=== PATIENT | male | born 1965 | race Caucasian/White ===

== ENCOUNTER 2016-08-27 13:21 | Inpatient (IN) | payer BC, OTHER ==
[2016-08-27 14:28] LABS: % IMMATURE GRANULYOCYTES 0.3 % (0.0-1.1); ABSOLUTE IMMATURE GRANULOCYTES 0.02 10^3/uL (0.00-0.10); ADD DIFF? NO; ADD MORPH? NO; ADD SCAN? NO; ATYPICAL LYMPHOCYTE FLAG 0 (0-99); FRAGMENT RBC FLAG 0 (0-99); HEMATOCRIT 45.8 % (40.0-51.0); HEMOGLOBIN 15.3 g/dL (13.7-17.5); LEFT SHIFT FLG 0 (0-99); LIPEMIA HEMOLYSIS FLAG 80 (0-99); MEAN CELL HEMOGLOBIN 27.9 pg (27.9-34.1); MEAN CELL HEMOGLOBIN CONCENTR. 33.4 g/dL (32.4-36.7); MEAN CELL VOLUME 83.4 fL (81.5-99.8); MEAN PLATELET VOLUME 9.7 fL (8.7-11.7); PLATELET CLUMPS FLAG 0 (0-99); PLATELET COUNT 188 10^3/uL (150-400); RED BLOOD CELL COUNT 5.49 10^6/uL (4.40-6.38); RED CELL DISTRIBUTION WIDTH 12.9 % (11.5-15.2)
--- NOTE | 2016-08-27 14:32 | EDPHY ---
H & P Stated Complaint: depression/si voluntary Source: Patient Exam Limitations: No limitations - Personal History Current Tetanus/Diphtheria Vaccine: Yes - Medical/Surgical History Hx Asthma: No Hx Chronic Respiratory Disease: No Hx Diabetes: No Hx Cardiac Disease: No Hx Renal Disease: No Hx Cirrhosis: No Hx Alcoholism: No Hx HIV/AIDS: No Hx Splenectomy or Spleen Trauma: No Other PMH: depression - Family History Significant Family History: No pertinent family hx - Social History Smoking Status: Never smoked Alcohol Use: Rarely Drug Use: None Time Seen by Provider: 08/27/16 14:00 HPI/ROS: HPI: 51-year-old male presents to emergency department voluntarily with chief concern feeling suicidal. Reports a plan of buying a gun and killing himself imminently. His father killed himself with a gun several months ago. Patient has a history of generalized anxiety and depression. He heard a voice today tell him to get a gun and kill himself. He denies alcohol or illicit drug use. Denies auditory hallucinations. Denies homicidal ideation. Denies previous suicide attempt. No fever, chills, myalgias, URI symptoms, shortness of breath , chest pain, abdominal pain, nausea, vomiting, diarrhea. ROS:10 point review of systems is negative other than as stated in HPI (Za Mcleod) - Social History Additional Social History: [place] (Za Mcleod) - Physical Exam Exam: Vital signs stable, reviewed by me General: Awake, alert, calm, cooperative. No acute distress. Head: Normalocephalic. Atraumatic. EENT: PERRLA. EOMI. No pallor or injection. Anicteric. No nystagmus. No injection. TMs intact bilaterally with normal landmarks. No rhinnorhea, nasal passages clear. Oropharynx without redness, exudates, or lesions. Tonsils 2+ bilaterally, no exudates. Neck: Supple, nontender. No lymphadenopathy. Full range of motion. No meningismus. Respiratory: Breathing unlabored. Breath sounds equal bilaterally and clear to auscultation. No adventitious sounds. CV: Chest nontender, atraumatic. Heart rate regular. No murmur, distal pulses 2+ bilaterally. Brisk cap refill all extremities. GI: Abdomen soft, nontender. Bowel sounds normoactive and positive x4 quadrants. Neuro: Alert. Oriented x 3. Speech clear. Nonfocal cranial nerves throughout. Sensation intact all extremities. Skin: Skin warm, dry, intact. No rashes, abrasions, or lacerations. Skin turgor normal. Extremities: Full range of motion in all 4 extremities. Strength 5+ all extremities. Mental status: Sad, controlled expressions, cooperative, logical (Za Mcleod ) Constitutional: Initial Vital Signs Temperature (C) 36.8 C 08/27/16 13:29 Heart Rate 78 08/27/16 13:29 Respiratory Rate 18 08/27/16 13:29 Blood Pressure 122/76 H 08/27/16 13:29 O2 Sat (%) 94 08/27/16 13:29 O2 Delivery Mode Room Air Allergies/Adverse Reactions: No Known Allergies Allergy (Unverified 08/27/16 13:27) Home Medications: Medication Instructions Recorded Levothyroxine [Synthroid 125 mcg 125 mcg PO MOTUWETHFRSA 08/27/16 (*)] Levothyroxine [Synthroid 125 mcg 187.5 mcg PO BELLO 08/27/16 (*)] Propranolol HCl [Inderal 10mg (*)] 10 mg PO DAILY PRN 08/27/16 Sertraline HCl [Zoloft 100mg (*)] 150 mg PO DAILY 08/27/16 Zolpidem Tartrate [Ambien 5MG (*)] 1.25 - 5 mg PO HS PRN 08/27/16 busPIRone [Buspar (*)] 5 - 15 mg PO DAILY PRN 08/27/16 Medical Decision Making ED Course/Re-evaluation: 51-year-old gentleman presents to emergency department voluntarily with chief concern suicidal ideation. He is placed on an M1 hold pending mental health evaluation. He is medically clear. Has no previous suicide attempts however his father killed himself with a gun several months ago. Patient is stable and cooperative. 1844: Patient has a bed on [address]. Awaiting transfer. Care of this patient has been transferred to my colleague Dr. Lauren Cordon. (Za Mcelod) 2009: I filled out an EMTALA. The patient has a disposition place. 2134: Patient is stable. (Lauren Cordon) Differential Diagnosis: Differential includes but is not limited to functional and major depression, situational depression, medication side-effect, anxiety, schizophrenia, bipolar , drug or alcohol related, acute psychosis, metabolic derangement, infection ( Za Mcleod) - Data Points Laboratory Results: Laboratory Results 08/27/16 14:00 08/27/16 14:00 08/27/16 08/27/16 08/27/16 18:11 14:00 14:00 WBC RBC Hgb Hct MCV MCH MCHC RDW Plt Count MPV Neut % (Auto) Lymph % (Auto) Cross % (Auto) Eos % (Auto) Baso % (Auto) Nucleat RBC Rel Count Absolute Neuts (auto) Absolute Lymphs (auto) Absolute Monos (auto) Absolute Eos (auto) Absolute Basos (auto) Absolute Nucleated RBC Immature Gran % Immature Gran # Sodium 135 mEq/L mEq/L (134-144) Potassium 4.4 mEq/L mEq/L (3.5-5.2) Chloride 101 mEq/L mEq/L (97-110) Carbon Dioxide 24 mEq/l mEq/l (22-31) Anion Gap 10 mEq/L mEq/L (8-16) BUN 19 mg/dL mg/dL (7-23) Creatinine 0.9 mg/dL mg/dL (0.7-1.3) Estimated GFR > 60 Glucose 110 mg/dL H mg/dL (70-100) Calcium 9.6 mg/dL mg/dL (8.5-10.4) TSH 2.070 uIU/mL uIU/mL (0.465-4.680) Urine Opiates Screen NEGATIVE (NEGATIVE) Urine Barbiturates NEGATIVE (NEGATIVE) Ur Phencyclidine Scrn NEGATIVE (NEGATIVE) Ur Amphetamine Screen NEGATIVE (NEGATIVE) U Benzodiazepines Scrn NEGATIVE (NEGATIVE) Urine Cocaine Screen NEGATIVE (NEGATIVE) U Marijuana (THC) Screen NEGATIVE (NEGATIVE) Ethyl Alcohol < 10 mg/dL mg/dL (0-10) 08/27/16 14:00 WBC 6.37 10^3/uL 10^3/uL (3.80-9.50) RBC 5.49 10^6/uL 10^6/uL (4.40-6.38) Hgb 15.3 g/dL g/dL (13.7-17.5) Hct 45.8 % % (40.0-51.0) MCV 83.4 fL fL (81.5-99.8) MCH 27.9 pg pg (27.9-34.1) MCHC 33.4 g/dL g/dL (32.4-36.7) RDW 12.9 % % (11.5-15.2) Plt Count 188 10^3/uL 10^3/uL (150-400) MPV 9.7 fL fL (8.7-11.7) Neut % (Auto) 75.6 % H % (39.3-74.2) Lymph % (Auto) 17.7 % % (15.0-45.0) Cross % (Auto) 5.8 % % (4.5-13.0) Eos % (Auto) 0.3 % L % (0.6-7.6) Baso % (Auto) 0.3 % % (0.3-1.7) Nucleat RBC Rel Count 0.0 % % (0.0-0.2) Absolute Neuts (auto) 4.81 10^3/uL 10^3/uL (1.70-6.50) Absolute Lymphs (auto) 1.13 10^3/uL 10^3/uL (1.00-3.00) Absolute Monos (auto) 0.37 10^3/uL 10^3/uL (0.30-0.80) Absolute Eos (auto) 0.02 10^3/uL L 10^3/uL (0.03-0.40) Absolute Basos (auto) 0.02 10^3/uL 10^3/uL (0.02-0.10) Absolute Nucleated RBC 0.00 10^3/uL 10^3/uL (0-0.01) Immature Gran % 0.3 % % (0.0-1.1) Immature Gran # 0.02 10^3/uL 10^3/uL (0.00-0.10) Sodium Potassium Chloride Carbon Dioxide Anion Gap BUN Creatinine Estimated GFR Glucose Calcium TSH Urine Opiates Screen Urine Barbiturates Ur Phencyclidine Scrn Ur Amphetamine Screen U Benzodiazepines Scrn Urine Cocaine Screen U Marijuana (THC) Screen Ethyl Alcohol Departure - Departure Disposition: [facility] IP Clinical Impression: Suicidal ideation Condition: Good Referrals: PEDRO REDMOND [Other] - As per Instructions
[2016-08-27 14:41] LABS: ANION GAP 10 mEq/L (8-16); CALCIUM 9.6 mg/dL (8.5-10.4); CARBON DIOXIDE 24 mEq/l (22-31); CHLORIDE 101 mEq/L (97-110); CREATININE 0.9 mg/dL (0.7-1.3); ETHANOL SERUM < 10 mg/dL (0-10); GLOMERULAR FILTRATION RATE > 60; GLUCOSE 110 mg/dL (70-100); POTASSIUM 4.4 mEq/L (3.5-5.2); SODIUM 135 mEq/L (134-144)
[2016-08-27] MEDS ORDERED: PROPRANOLOL HCL 10 MG TAB PO PRN (22:50)
[2016-08-27] MEDS ORDERED: ACETAMINOPHEN 325 MG TAB PO PRN (22:50)
[2016-08-27] MEDS ORDERED: MAG HYDROX/AL HYDROX/SIMETH 30 ML UDCUP PO PRN (22:51)
[2016-08-27] MEDS: ZOLPIDEM TARTRATE 5 MG TAB PO PRN (23:15)
[2016-08-28] MEDS: LORazepam 0.5 MG TAB PO PRN ×3 (00:36→20:53)
[2016-08-28] MEDS: SERTRALINE HCL 50 MG TAB PO SCH (09:21)
[2016-08-28] MEDS: LEVOTHYROXINE 125 MCG TAB PO SCH (09:22)
[2016-08-28] MEDS: ZOLPIDEM TARTRATE 5 MG TAB PO PRN (20:53)
[2016-08-28] MEDS: MAGNESIUM HYDROXIDE 30 ML UDCUP PO PRN (20:53)
--- NOTE | 2016-08-28 22:57 | BCON ---
[f rep st] BEHAVIORAL HEALTH CONSULTATION INTERNAL MEDICINE CONSULTATION DATE OF CONSULTATION: 08/28/2016 REFERRING PHYSICIAN: Dr. Godoy REASON FOR CONSULTATION: Medical clearance for inpatient behavioral health stay. HISTORY OF PRESENT ILLNESS: The patient came voluntarily to the emergency department at the suggestion of a psychiatrist for evaluation of depression and suicidal ideation with a plan. He was evaluated by the mental health team and admitted for further psychiatric care. He currently is without any acute complaints. PAST MEDICAL HISTORY: 1. Anxiety and depression. 2. History of hypogonadism. 3. Hypothyroidism. 4. Right shoulder surgery. MEDICATIONS: Prior to admission: 1. Propranolol 10 mg p.o. q. day p.r.n. 2. Levothyroxine 187.5 mcg on Saturday and 125 mcg on other days of the week. 3. Buspirone 5 to 15 mg p.o. q. day p.r.n. 4. Sertraline 150 mg p.o. q. day. 5. Zolpidem 1.25 to 5 mg p.o. q.h.s. p.r.n. ALLERGIES: There are no known drug allergies. SOCIAL HISTORY: He is . He lives with his . He has no children. He works as a computer lab assistant. He recently lost his job and started a new job , which he does not like, and his father committed suicide several months ago on [address]. FAMILY HISTORY: There is a history of suicide in his father. REVIEW OF SYSTEMS: He reports some constipation. He has a depressed mood. He has had some weight loss and reports a history of weight loss when he has flares of anxiety. He denies fevers, chills, feeling excessively hot or cold, excessive sweatiness or dry skin. He denies nausea or vomiting. He has had a reduced appetite, and otherwise a 10-point review of systems is negative. PHYSICAL EXAMINATION: VITAL SIGNS: Blood pressure is 104/73, heart rate is 85 , respiratory rate is 12, oxygen saturation is 92% on room air, temperature is 36.7 degrees centigrade. His weight is 99.8 kg for a body mass index of 33.5. GENERAL: This is an obese man, sitting up in a chair, dressed in street clothes , cooperative, groomed, and in no acute distress. HEENT: Extraocular movements are intact. Pupils are equal, round, and reactive to light. Mucous membranes are moist. Dentition is in good condition. There are no oropharyngeal mucosal lesions, and there is no posterior oropharyngeal mucus. NECK: Supple. HEART: There is a regular rate and rhythm with no murmurs, rubs , or gallops. LUNGS: Clear to auscultation bilaterally. ABDOMEN: Soft, nontender, nondistended with normoactive bowel sounds. EXTREMITIES: There is no cyanosis, clubbing, or edema. NEUROLOGIC: He is alert and oriented x3. Cranial nerves 2-12 are grossly intact. There is no focal weakness, and sensation is intact to light touch. LABORATORY STUDIES: Drawn in the emergency department yesterday CBC was overall within normal limits. There was a relative increase in neutrophils to 75.6%, but otherwise there was no elevated white blood cell count and no left shift. Serum chemistry revealed normal renal function and electrolytes. Glucose was elevated at 110, but it was likely not fasting. TSH was normal at 2.07. Toxicology in the serum was negative for ethyl alcohol, and the urine was negative for any substances of abuse. ASSESSMENT AND RECOMMENDATIONS: 1. Mental health issues. Pending further evaluation and management per Psychiatry and the mental health team. 2. Weight loss, likely related to anxiety. 3. Obesity. Weight loss is necessarily a bad thing for him. Encouraged exercise. 4. History of hypogonadism. After discussion with him, I have ordered an add- on total and free testosterone level. Upon review of his labs, he has been eugonadal most of the time, but the first set of labs regarding gonadal function on 11/29/2009 revealed a significantly low free testosterone. He has also been overcorrected with a high total and a high free testosterone. I think it is unlikely that his gonadal function is causative regarding his mood changes. It is that if he is significantly depressed that he will also have a low testosterone as a result. I see no medical contraindications to the patient's continued stay on the inpatient behavioral health unit or to any psychiatric medications or procedures. Thank you for including me in the care of this patient, and please do not hesitate to contact me or the hospitalist service should there be need for further medical evaluation. /[id number]/MODL MTDD
--- NOTE | 2016-08-29 07:58 | BAPA ---
[f rep st] ADMISSION PSYCHIATRIC ASSESSMENT PATIENT IDENTIFICATION: The patient presents as a 51-year-old, , white male; the patient lives with his , is working full-time as a computer tech; he is an identified psychiatric outpatient followed in outpatient psychotherapy and medication management by his PCP; he was admitted via the [facility] Emergency Room for complaints of a depressive crisis and suicidal ideation with a plan to buy a gun and shoot himself to . HISTORY OF PRESENT ILLNESS: The patient presents with a chronic history of generalized anxiety symptoms and recurrent episodes of depression. He has no previous history of suicide attempts. This current episode has emerged in the context of serious family of origin dysfunction. The patient describes his mother had been intrusive into the family of his brother and [id number] and their children. Apparently, for an extended time, the patient's mother had been intrusive and criticizing the parenting patterns of patient's brother and [id number] with their younger children. This point of tension had been 1 in which the patient's father, as well as the patient had been drying to mediate and resolve for the patient's brother's family and patient's mother. This had been going on for some months last year and become increasingly conflicted with all family members. This particularly impacted the patient's father and the patient who had been separately attempting to intervene in a supportive in mediating way. Ultimately, the family system conflict included conflictual interactions between the patient's parents with mother threatening to separate from patient's father and live independently. The patient's father developed his own acute depression and unexpectedly suicided by shooting himself in the head on May 05, 2016. This event apparently was totally unexpected by all family members including the patient. Several days later, on May 08, the patient received notice from the company he had worked for 29 years that the [employer] was planning a large lay off by the end of May. 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 Patient dealt with these 2 major stressors , father positively a suicide and a loss of long-term job by isolating affect, continuing to support family members including brother and his family and mother through the shock and initial grief with the suicided father. The patient states he "felt nothing" about the loss of his valued job until taking a new job on July 22. He immediately found the new job dissatisfactory, as well as experienced marked emotionality about the loss of the long-term job which he states he felt he was very effective in and highly valued for. Through this entire present illness history, the patient had been maintained on medications prescribed by his GP. The regimen actually preceded the emergence of primary depressive symptoms several months ago, as he had been on them exterminator termite. Medications included Zoloft 150 mg q.a.m., propranolol 10 mg and daily p.r.n., BuSpar 5-15 mg daily p.r.n., and Ambien 10 mg p.r.n. at . At some point, in the course of the present illness, the patient resumed treatment with the psychotherapist he had worked with intermittently over a period of 5 years during which he had addressed previous episodes of depression. Over the following 2 months, the patient's syndromal depression worsened, associated with dysphoric mood, anhedonia, diminished psychomotor energy, and intermittent passive suicidal ideation. As his depressive acuity intensified in the past week, he felt rapidly increasing intensity of depression. His suicidal ideation morphed into suicidal planning, which involve purchasing a gun and shooting himself in the head like his father. This ideational contact became increasingly disturbing to the patient and on the day of admission, he called his therapist stating his fears he may act on these plans. She in turn directed him to come to the [facility] Emergency Room and be assessed for inpatient hospitalization. The patient states a complicating feature for him through this course of depression is his sense that his does not understand the importance of his work identity and the proportions of the loss of his successful career with a company from which he was laid off. In providing this narrative, the patient suggests that the marital relationship on a more chronic basis has included conflictual elements for the patient. The patient did self- refer to the [facility] Emergency Room. His medical assessment was negative for any active medical problems including a normal physical exam. Lab screens included a CBC, BMP, toxic screen, TSH, and a total testosterone. Testosterone assay is pending and other lab screens were negative and/or unremarkable. The patient was seen in psychiatric assessment by [facility]. His depressive acuity and significant suicidal risk were reaffirmed and he was sent on to [address] [place] [address] to be admitted on an M1 hold. PSYCHIATRIC HISTORY: The patient has no known history for suicide attempts or previous inpatient hospitalizations. He has had recurrent episodes of depression and been seen for intermittent incidents of outpatient psychotherapy with the current identified psychotherapist, whom he has resumed seeing in the past several months. Use of psychoactive medication history needs further clarification. We do know he has been on an extended course of the home medications as referenced above, prescribed by his PCP. It is unclear if patient has ever consulted with a psychiatrist concerning his syndromal depressions and medication needs. MEDICAL HISTORY: S/P: Hypothyroidism. Hypogonadism. History of right shoulder surgery. The patient was noted to have low serum testosterone in 2009. He was apparently treated for an unknown period with TRT and he experienced an overcorrection of his low testosterone. He has not been on TRT treatment for an extended period prior to this admission. ALLERGIES: The patient has no known medication, food, or environmental allergies. MEDICAL REVIEW OF SYSTEMS: Negative. SUBSTANCE ABUSE HISTORY: Patient denies current or past history of alcohol abuse; he denies use of any other substances. LEGAL HISTORY: The patient denies current or past history. PERSONAL HISTORY/FAMILY HISTORY: The patient was born and raised in an intact family of origin which included his biologic parents and a younger brother. The patient denies any history of trauma or abuse within the family system during his childhood and adolescence. The patient graduated high school and graduated the [employer] with a degree in electrical and computer engineering. 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 As referenced above, the patient had a successful 29-year career with a single company from which he and other employees were laid off the end of May 2016. 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 There is no known family pedigree for psychiatric and/or substance problems. Within the past 12 months, there was a high degree of family system conflicts regarding mother's intrusive impact on patient's brother and [id number]-ms-nsc and their family system operation as referenced in present illness. This family system tension appeared to be a primary factor leading to the suicide of the patient's father. ADMISSION MENTAL STATUS EXAM: On direct exam, the patient presents as a middle- aged man looking his stated age. He is kempt, evidences a normal gait and station, engages in the 1st contact cooperatively. Patient makes good eye contact, is conversant, and presents with reality focus linear thought process. The patient's mood state is moderately depressed, as well as he expresses mild to moderate generalized anxiety. His speech parameters are within normal limits. Patient appears to be openly disclosing and providing the details as referenced in the narrative above. He practically emphasizes the increase in his depressive pain and mounting fears that he may act on his suicidal thoughts if not hospitalized. The patient is alert and oriented x4, evidences average intelligence referencing his vocabulary, syntax, and range of information. Memory functioning appears fully intact across all domains. Patient's insight is fair, judgment fair, and impulse control intact. Thought process is goal focused and linear. The patient appears invested in the current inpatient intervention to complete workup and initiate affective treatment. He is open to medication modifications. He is interested that his be involved in providing collateral input, as well as informed about the treatment process. The patient's ADL functions are intact and appropriate for his age. Session focuses on staging current mental status, over viewing symptom and treatment history, over viewing lifeline history. FORMULATION: The patient presents as a 51-year-old, , white male, who has a chronic history for recurrent depressive episodes, appears to present with prominent axis II traits of obsessive and compulsive nature. More recent depressive crisis is directly related to the unexpected suicide of his father on 05/05/2016 and the unexpected layoff after a successful 29-year career job from his company at the end of May 2015. Additional stress is present secondary to a dissatisfying job the patient began on 07/22/2016. Finally, there is suggestive information that the patient experiences chronic conflictual dynamics in his marital relationship. The couple is childless. Admission will focus on stabilized mental status exam, completing diagnostic workup to inform and followup treatment which will include medication management and focused psychotherapy. We will expedite collateral from the patient's prescribing PCP and psychotherapist along with intake with patient's . INITIAL TREATMENT PLAN: 1. Nursing-complete admission evaluation; monitor for safety and suicidality; encourage compliance with medications and cares; orient to unit, milieu and group program and encourage participation. 2. Psychiatry-complete admission assessment; provide daily E/M contacts with focus on completing diagnostic workup, providing reintegrative psychotherapeutic contacts, assessing and managing psychoactive medication needs , and allying patient with post-discharge treatment-links in place at discharge. 3. Clinical Coordinator: Daily visits to expand the database including contact with relevant collaterals; identify discharge resources to link patient with at discharge. 4. Admission medical consultation-done per Dr. Mireles. 5. Medications: No change in medications today, we will continue home medications and assess patient for modification of his antidepressants and anxiolytics in 1st phase; will contact patient's prescribing PCP for case review. 6. Prioritized inpatient goals: Stabilize mental status sufficient for discharge; complete diagnostic formulation to inform definitive discharge plans , ally patient with length of treatment plan post discharge. /[id number]/MODL MTDD
[2016-08-29] MEDS: LEVOTHYROXINE 125 MCG TAB PO SCH (09:02)
[2016-08-29] MEDS: SERTRALINE HCL 50 MG TAB PO SCH (09:02)
[2016-08-29] MEDS: LORazepam 0.5 MG TAB PO PRN (09:53)
--- NOTE | 2016-08-29 16:15 | SOAPPROG ---
SOAP Progress Note Assessment/Plan: Assessment: Plan: 08/29/16 16:08 DAY ' UPDATE/EXAM: Nursing report pt presents with residual depressive syndromal acuity but is in control, c/w cares and meds, isolative currently/ presents as anxious, cooperative, conversant; engages well and is disclosing in answering ?' s about sx/rx history, more details of dyad with father with whom he is closely identified; meds reviewed in detail with changes as referenced. ASSESSMENT/PLAN: remains acutely depressed but engaging in rx and not at suicidal risk/ gegin Bupropion 150 mg XL, Ativan 0.5 mg tid, TZ 50 mg hs; will consider adding Neurontin as probably has primary SERENA; CP d/w Nursing Objective: Vital Signs Temp Pulse Resp BP Pulse Ox 36.7 C 85 12 104/73 92 08/28/16 06:00 08/28/16 06:00 08/28/16 06:00 08/28/16 06:00 08/28/16 06:00 ICD10 Worksheet Patient Problems: Problems Problem Status Onset Suicidal ideation Acute
[2016-08-29] MEDS: LORazepam 0.5 MG TAB PO SCH (16:56)
[2016-08-29] MEDS: ZOLPIDEM TARTRATE 5 MG TAB PO PRN (20:58)
[2016-08-29] MEDS: traZODone 50 MG TAB PO SCH (20:58)
[2016-08-29] MEDS: MAGNESIUM HYDROXIDE 30 ML UDCUP PO PRN (21:08)
[2016-08-29] MEDS ORDERED: LORazepam 0.5 MG TAB PO SCH (22:00)
[2016-08-30] MEDS: LORazepam 0.5 MG TAB PO PRN ×2 (05:08→20:19)
--- NOTE | 2016-08-30 06:14 | SOAPPROG ---
SOAP Progress Note Assessment/Plan: Assessment: Plan: 08/29/16 16:08 DAY UPDATE/EXAM: Nursing report pt presents with residual depressive syndromal acuity but is in control, c/w cares and meds, isolative currently/ presents as anxious, cooperative, conversant; engages well and is disclosing in answering ?' s about sx/rx history, more details of dyad with father with whom he is closely identified; meds reviewed in detail with changes as referenced. ASSESSMENT/PLAN: remains acutely depressed but engaging in rx and not at suicidal risk/ Begin Bupropion 150 mg XL, Ativan 0.5 mg tid, TZ 50 mg hs; will consider adding Neurontin as probably has primary SERENA; CP d/w Nursing 08/20/26 DAY UPDATE: Objective: Vital Signs Temp Pulse Resp BP Pulse Ox 36.7 C 85 12 104/73 92 08/28/16 06:00 08/28/16 06:00 08/28/16 06:00 08/28/16 06:00 08/28/16 06:00 ICD10 Worksheet Patient Problems: Problems Problem Status Onset Suicidal ideation Acute
[2016-08-30] MEDS: SERTRALINE HCL 25 MG TAB PO SCH (08:42)
[2016-08-30] MEDS: LORazepam 0.5 MG TAB PO SCH ×3 (08:42→17:32)
[2016-08-30] MEDS: buPROPion XL 150 MG TAB PO SCH (08:42)
[2016-08-30] MEDS: LEVOTHYROXINE 125 MCG TAB PO SCH (09:05)
[2016-08-30] MEDS: traZODone 50 MG TAB PO SCH (20:20)
--- NOTE | 2016-08-31 06:38 | SOAPPROG ---
SOAP Progress Note Assessment/Plan: Assessment: Plan: 08/29/16 16:08 DAY ' UPDATE/EXAM: Nursing report pt presents with residual depressive syndromal acuity but is in control, c/w cares and meds, isolative currently/ presents as anxious, cooperative, conversant; engages well and is disclosing in answering ?' s about sx/rx history, more details of dyad with father with whom he is closely identified; meds reviewed in detail with changes as referenced. ASSESSMENT/PLAN: remains acutely depressed but engaging in rx and not at suicidal risk/ Begin Bupropion 150 mg XL, Ativan 0.5 mg tid, TZ 50 mg hs; will consider adding Neurontin as probably has primary SERENA; CP d/w Nursing 08/30/16 1615 DAY UPDATE/EXAM: Nursing reports pt slept 7 hr, less isolative and attending selective groups; c/w cares and meds, appears less depressed. on direct exam pt engages comfortably and is eager to talk; discloses more details about the family experience involving parents and brother over the past year which ultimately led to father's acute depression and suicide; pt presents this material in an analytical fashion with isolation of affect -describing the story as an observer more than a participant; he went onto to focus on the marital relationship, recurrent points of tension vs himself and which they solve by "verbal negotiation - touched on long-standing conflicts about their sexual experience together, differences in their social styles, differences in attitudes about work. He stated his interest in having 3-way consultation with before DC to clarify the way forward about his work concerns; he also wants his therapist to be briefed on his inpt course; meds re viewed briefly, denies SI ASSESSMENT/PLAN: descriptively improving with early phase resolution of depressive acuity; marital and work concerns are real but also buffering pain about father's suicide/ will reassess meds in AM and titrate Bupropion up, consider adding Neurontin Objective: Vital Signs Temp Pulse Resp BP Pulse Ox 36.7 C 74 14 92/56 L 93 08/31/16 06:00 08/31/16 06:00 08/31/16 06:00 08/31/16 06:00 08/31/16 06:00 ICD10 Worksheet Patient Problems: Problems Problem Status Onset Suicidal ideation Acute
--- NOTE | 2016-08-31 06:39 | SOAPPROG ---
SOAP Progress Note Assessment/Plan: Assessment: Plan: 08/29/16 16:08 DAY UPDATE/EXAM: Nursing report pt presents with residual depressive syndromal acuity but is in control, c/w cares and meds, isolative currently/ presents as anxious, cooperative, conversant; engages well and is disclosing in answering ?' s about sx/rx history, more details of dyad with father with whom he is closely identified; meds reviewed in detail with changes as referenced. ASSESSMENT/PLAN: remains acutely depressed but engaging in rx and not at suicidal risk/ Begin Bupropion 150 mg XL, Ativan 0.5 mg tid, TZ 50 mg hs; will consider adding Neurontin as probably has primary SERENA; CP d/w Nursing 08/30/16 1615 UPDATE/EXAM: Nursing reports pt slept 7 hr, less isolative and attending selective groups; c/w cares and meds, appears less depressed. on direct exam pt engages comfortably and is eager to talk; discloses more details about the family experience involving parents and brother over the past year which ultimately led to father's acute depression and suicide; pt presents this material in an analytical fashion with isolation of affect -describing the story as an observer more than a participant; he went onto to focus on the marital relationship, recurrent points of tension vs himself and which they solve by "verbal negotiation - touched on long-standing conflicts about their sexual experience together, differences in their social styles, differences in attitudes about work. He stated his interest in having 3-way consultation with before DC to clarify the way forward about his work concerns; he also wants his therapist to be briefed on his inpt course; meds re viewed briefly, denies SI ASSESSMENT/PLAN: descriptively improving with early phase resolution of depressive acuity; marital and work concerns are real but also buffering pain about father's suicide/ will reassess meds in AM and titrate Bupropion up, consider adding Neurontin 08/31/16 DAY UPDATE: Objective: Vital Signs Temp Pulse Resp BP Pulse Ox 36.7 C 74 14 92/56 L 93 08/31/16 06:00 08/31/16 06:00 08/31/16 06:00 08/31/16 06:00 04/28/17 06:00 ICD10 Worksheet Patient Problems: Problems Problem Status Onset Suicidal ideation Acute
[2016-08-31] MEDS: LORazepam 0.5 MG TAB PO SCH ×3 (08:23→18:15)
[2016-08-31] MEDS: LEVOTHYROXINE 125 MCG TAB PO SCH (08:23)
[2016-08-31] MEDS: buPROPion XL 150 MG TAB PO SCH (08:24)
[2016-08-31] MEDS: SERTRALINE HCL 25 MG TAB PO SCH (08:27)
[2016-08-31] MEDS: LORazepam 0.5 MG TAB PO PRN ×4 (09:58→23:32)
[2016-08-31] MEDS: ZOLPIDEM TARTRATE 5 MG TAB PO PRN (20:39)
[2016-08-31] MEDS: traZODone 50 MG TAB PO SCH (20:39)
[2016-08-31] MEDS: MAGNESIUM HYDROXIDE 30 ML UDCUP PO PRN (23:34)
--- NOTE | 2016-09-01 07:50 | SOAPPROG ---
SOAP Progress Note Assessment/Plan: Assessment: Plan: 08/29/16 16:08 DAY UPDATE/EXAM: Nursing report pt presents with residual depressive syndromal acuity but is in control, c/w cares and meds, isolative currently/ presents as anxious, cooperative, conversant; engages well and is disclosing in answering ?' s about sx/rx history, more details of dyad with father with whom he is closely identified; meds reviewed in detail with changes as referenced. ASSESSMENT/PLAN: remains acutely depressed but engaging in rx and not at suicidal risk/ Begin Bupropion 150 mg XL, Ativan 0.5 mg tid, TZ 50 mg hs; will consider adding Neurontin as probably has primary SERENA; CP d/w Nursing 08/30/16 1615 DAY UPDATE/EXAM: Nursing reports pt slept 7 hr, less isolative and attending selective groups; c/w cares and meds, appears less depressed. on direct exam pt engages comfortably and is eager to talk; discloses more details about the family experience involving parents and brother over the past year which ultimately led to father's acute depression and suicide; pt presents this material in an analytical fashion with isolation of affect -describing the story as an observer more than a participant; he went onto to focus on the marital relationship, recurrent points of tension vs himself and which they solve by "verbal negotiation - touched on long-standing conflicts about their sexual experience together, differences in their social styles, differences in attitudes about work. He stated his interest in having 3-way consultation with before DC to clarify the way forward about his work concerns; he also wants his therapist to be briefed on his inpt course; meds re viewed briefly, denies SI ASSESSMENT/PLAN: descriptively improving with early phase resolution of depressive acuity; marital and work concerns are real but also buffering pain about father's suicide/ will reassess meds in AM and titrate Bupropion up, consider adding Neurontin 08/31/16 15:30 DAY UPDATE: Nursing reports over last 24 hr cycle pt has evidenced residual syndromal depression a/w dysphoric mood intermittent withdrawal to room; is selectively social and attending more group therapies, c/w cares and meds. ON EXAM: presents as calm and conversant, eager to talk; session focus on syndromal update, meds review, and again elaborating on pt's distressed domains - family system conflict leading to father's suicide, identification with father , work distress, and more disclosure about marital concerns. While with pt I called and s/u plan to meet with pt and on 09/03 at pt's request; pt accepts updosing of Bupropion and is pleased about expanding privileges as he is now Voluntary status. Denies residual SI ASSESSMENT/PLAN: appears to be progressing in resolving depressive residual acuity; remains intellectualized but depressive affect mobilizing a/w grief reaction/ increase Bupropion XL to 300 mg qam; continue current CP as d/w Nursing Objective: Vital Signs Temp Pulse Resp BP Pulse Ox 36.7 C 72 16 101/71 96 09/01/16 04:19 09/01/16 04:19 09/01/16 04:19 09/01/16 04:19 09/01/16 04:19 ICD10 Worksheet Patient Problems: Problems Problem Status Onset Suicidal ideation Acute
[2016-09-01] MEDS: SERTRALINE HCL 25 MG TAB PO SCH (09:29)
[2016-09-01] MEDS: buPROPion XL 150 MG TAB PO SCH (09:29)
[2016-09-01] MEDS: LEVOTHYROXINE 125 MCG TAB PO SCH (09:30)
[2016-09-01] MEDS: LORazepam 0.5 MG TAB PO SCH ×3 (09:30→17:36)
[2016-09-01] MEDS: ZOLPIDEM TARTRATE 5 MG TAB PO PRN (21:52)
[2016-09-01] MEDS: traZODone 50 MG TAB PO SCH (21:52)
[2016-09-01] MEDS: MAGNESIUM HYDROXIDE 30 ML UDCUP PO PRN (21:58)
--- NOTE | 2016-09-01 23:50 | SOAPPROG ---
SOAP Progress Note Assessment/Plan: Assessment: 51yo CM with MDD recurrent, exacerbation with +SI and plan to shoot self, as father recently suicided 4 months ago. Stabilizing on unit, no longer with SI, + future oriented, expressing insight. 09/01/16 14:42 per staff, slept 7hr states sleeping well, overall feeling "not worse", and "not particularly depressed". Tolerating meds w/o s/e, had recent incr in wellbutrin this AM. Would like his treatment currently "to stay the course". Talked some of his and her reluctance to engage in therapy or couples. Likes his therapist, and will try to have join in on some of their sessions, feels they need to work on communication issues. Looking fwd to continuing psych f/u after d/c. Denies any SI and denies feeling any regret that he didn't harm self and glad he came in for help. States Zoloft taper is without adverse effects. Did feel it used to cause vivid intense dreams. Not having this now. MSE: calm cooperative, good eye contact, nml speech rate/vol, engaged in conversation, mood as noted above, affect constricted but appropriate to conversation, denied any psychotic sxs, denied si/hi and expressing good insight and jdgment. Plan: Cont current meds Objective: Vital Signs Temp Pulse Resp BP Pulse Ox 36.7 C 72 16 101/71 96 09/01/16 04:19 09/01/16 04:19 09/01/16 04:19 09/01/16 04:19 09/01/16 04:19 - Time Spent With Patient Time Spent With Patient: 40min - Pending Discharge Pending Discharge Within 24 Hours: No Pending Discharge Within 48 Hours: No ICD10 Worksheet Patient Problems: Problems Problem Status Onset Suicidal ideation Acute
[2016-09-02] MEDS: LORazepam 0.5 MG TAB PO SCH ×3 (07:06→18:20)
[2016-09-02] MEDS: buPROPion XL 150 MG TAB PO SCH (08:43)
[2016-09-02] MEDS: LEVOTHYROXINE 125 MCG TAB PO SCH (08:43)
[2016-09-02] MEDS: SERTRALINE HCL 25 MG TAB PO SCH (08:43)
[2016-09-02] MEDS: LORazepam 0.5 MG TAB PO PRN ×2 (10:08→18:22)
--- NOTE | 2016-09-02 14:53 | SOAPPROG ---
SOAP Progress Note Assessment/Plan: Assessment: 51yo CM with MDD recurrent, exacerbation with +SI and plan to shoot self, as father recently suicided 4 months ago. Stabilizing on unit, no longer with SI, + future oriented, expressing insight. 09/01/16 14:42 per staff, slept 7hr states sleeping well, overall feeling "not worse", and "not particularly depressed". Tolerating meds w/o s/e, had recent incr in wellbutrin this AM. Would like his treatment currently "to stay the course". Talked some of his and her reluctance to engage in therapy or couples. Likes his therapist, and will try to have join in on some of their sessions, feels they need to work on communication issues. Looking fwd to continuing psych f/u after d/c. Denies any SI and denies feeling any regret that he didn't harm self and glad he came in for help. States Zoloft taper is without adverse effects. Did feel it used to cause vivid intense dreams. Not having this now. MSE: calm cooperative, good eye contact, nml speech rate/vol, engaged in conversation, mood as noted above, affect constricted but appropriate to conversation, denied any psychotic sxs, denied si/hi and expressing good insight and jdgment. Plan: Cont current meds 09/02/16 14:53 Objective: Vital Signs Temp Pulse Resp BP Pulse Ox 36.7 C 68 15 98/59 L 95 09/02/16 06:00 09/02/16 06:00 09/02/16 06:00 09/02/16 06:00 09/02/16 06:00 Medications Generic Name Dose Route Start Last Admin Trade Name Freq PRN Reason Stop Dose Admin Levothyroxine Sodium 125 mcg 08/28/16 10:00 09/02/16 08:43 Synthroid PO 02/24/17 09:59 125 mcg DAILY@1000 JUSTYNA Trazodone HCl 50 mg 08/29/16 21:00 09/01/16 21:52 Trazodone PO 02/25/17 20:59 50 mg HS JUSTYNA Zolpidem Tartrate 5 mg 08/27/16 22:50 09/01/16 21:52 Ambien PO 02/23/17 22:49 5 mg HS PRN Sleep/Insomnia Bupropion HCl 300 mg 09/01/16 09:00 09/02/16 08:43 Wellbutrin Xl PO 02/28/17 08:59 300 mg DAILY JUSTYNA Lorazepam 0.5 mg 08/29/16 18:00 09/02/16 12:53 Ativan PO 02/25/17 17:59 0.5 mg TID@0800,1300,1800 JUSTYNA Sertraline HCl 75 mg 08/30/16 09:00 09/02/16 08:43 Zoloft PO 02/26/17 08:59 75 mg DAILY JUSTYNA - Pending Discharge Pending Discharge Within 24 Hours: No Pending Discharge Within 48 Hours: No ICD10 Worksheet Patient Problems: Problems Problem Status Onset Suicidal ideation Acute
[2016-09-02] MEDS: ZOLPIDEM TARTRATE 5 MG TAB PO PRN (21:09)
[2016-09-02] MEDS: traZODone 50 MG TAB PO SCH (21:09)
--- NOTE | 2016-09-03 06:20 | SOAPPROG ---
SOAP Progress Note Assessment/Plan: Assessment: Plan: 08/29/16 16:08 DAY UPDATE/EXAM: Nursing report pt presents with residual depressive syndromal acuity but is in control, c/w cares and meds, isolative currently/ presents as anxious, cooperative, conversant; engages well and is disclosing in answering ?' s about sx/rx history, more details of dyad with father with whom he is closely identified; meds reviewed in detail with changes as referenced. ASSESSMENT/PLAN: remains acutely depressed but engaging in rx and not at suicidal risk/ Begin Bupropion 150 mg XL, Ativan 0.5 mg tid, TZ 50 mg hs; will consider adding Neurontin as probably has primary SERENA; CP d/w Nursing 08/30/16 1615 DAY UPDATE/EXAM: Nursing reports pt slept 7 hr, less isolative and attending selective groups; c/w cares and meds, appears less depressed. on direct exam pt engages comfortably and is eager to talk; discloses more details about the family experience involving parents and brother over the past year which ultimately led to father's acute depression and suicide; pt presents this material in an analytical fashion with isolation of affect -describing the story as an observer more than a participant; he went onto to focus on the marital relationship, recurrent points of tension vs himself and which they solve by "verbal negotiation - touched on long-standing conflicts about their sexual experience together, differences in their social styles, differences in attitudes about work. He stated his interest in having 3-way consultation with before DC to clarify the way forward about his work concerns; he also wants his therapist to be briefed on his inpt course; meds re viewed briefly, denies SI ASSESSMENT/PLAN: descriptively improving with early phase resolution of depressive acuity; marital and work concerns are real but also buffering pain about father's suicide/ will reassess meds in AM and titrate Bupropion up, consider adding Neurontin 08/31/16 15:30 DAY UPDATE: Nursing reports over last 24 hr cycle pt has evidenced residual syndromal depression a/w dysphoric mood intermittent withdrawal to room; is selectively social and attending more group therapies, c/w cares and meds. ON EXAM: presents as calm and conversant, eager to talk; session focus on syndromal update, meds review, and again elaborating on pt's distressed domains - family system conflict leading to father's suicide, identification with father , work distress, and more disclosure about marital concerns. While with pt I called and s/u plan to meet with pt and on 09/03 at pt's request; pt accepts updosing of Bupropion and is pleased about expanding privileges as he is now Voluntary status. Denies residual SI ASSESSMENT/PLAN: appears to be progressing in resolving depressive residual acuity; remains intellectualized but depressive affect mobilizing a/w grief reaction/ increase Bupropion XL to 300 mg qam; continue current CP as d/w Nursing 09/03/16 DAY ' UPDATE: Objective: Vital Signs Temp Pulse Resp BP Pulse Ox 36.7 C 68 15 98/59 L 95 09/02/16 06:00 09/02/16 06:00 09/02/16 06:00 09/02/16 06:00 09/02/16 06:00 ICD10 Worksheet Patient Problems: Problems Problem Status Onset Suicidal ideation Acute
[2016-09-03] MEDS: LEVOTHYROXINE 125 MCG TAB PO SCH (08:52)
[2016-09-03] MEDS: buPROPion XL 150 MG TAB PO SCH ×2 (08:52→13:25)
[2016-09-03] MEDS: SERTRALINE HCL 25 MG TAB PO SCH (08:52)
[2016-09-03] MEDS: LORazepam 0.5 MG TAB PO SCH ×3 (08:52→18:45)
[2016-09-03] MEDS: LORazepam 0.5 MG TAB PO PRN (16:44)
[2016-09-03] MEDS: traZODone 50 MG TAB PO SCH (22:08)
[2016-09-03] MEDS: ZOLPIDEM TARTRATE 5 MG TAB PO PRN (22:08)
--- NOTE | 2016-09-04 06:02 | SOAPPROG ---
SOAP Progress Note Assessment/Plan: Assessment: Plan: 08/29/16 16:08 DAY UPDATE/EXAM: Nursing report pt presents with residual depressive syndromal acuity but is in control, c/w cares and meds, isolative currently/ presents as anxious, cooperative, conversant; engages well and is disclosing in answering ?' s about sx/rx history, more details of dyad with father with whom he is closely identified; meds reviewed in detail with changes as referenced. ASSESSMENT/PLAN: remains acutely depressed but engaging in rx and not at suicidal risk/ Begin Bupropion 150 mg XL, Ativan 0.5 mg tid, TZ 50 mg hs; will consider adding Neurontin as probably has primary SERENA; CP d/w Nursing 08/30/16 1615 DAY UPDATE/EXAM: Nursing reports pt slept 7 hr, less isolative and attending selective groups; c/w cares and meds, appears less depressed. on direct exam pt engages comfortably and is eager to talk; discloses more details about the family experience involving parents and brother over the past year which ultimately led to father's acute depression and suicide; pt presents this material in an analytical fashion with isolation of affect -describing the story as an observer more than a participant; he went onto to focus on the marital relationship, recurrent points of tension vs himself and which they solve by "verbal negotiation - touched on long-standing conflicts about their sexual experience together, differences in their social styles, differences in attitudes about work. He stated his interest in having 3-way consultation with before DC to clarify the way forward about his work concerns; he also wants his therapist to be briefed on his inpt course; meds re viewed briefly, denies SI ASSESSMENT/PLAN: descriptively improving with early phase resolution of depressive acuity; marital and work concerns are real but also buffering pain about father's suicide/ will reassess meds in AM and titrate Bupropion up, consider adding Neurontin 08/31/16 15:30 DAY UPDATE: Nursing reports over last 24 hr cycle pt has evidenced residual syndromal depression a/w dysphoric mood intermittent withdrawal to room; is selectively social and attending more group therapies, c/w cares and meds. ON EXAM: presents as calm and conversant, eager to talk; session focus on syndromal update, meds review, and again elaborating on pt's distressed domains - family system conflict leading to father's suicide, identification with father , work distress, and more disclosure about marital concerns. While with pt I called and s/u plan to meet with pt and on 09/03 at pt's request; pt accepts updosing of Bupropion and is pleased about expanding privileges as he is now Voluntary status. 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; c/w cares and meds and attending most groups/ on direct exam states "I've been teary" in addressing his lost career job and to a lesser degree his father's suicide; does report residual vegetative depressive sx, denies SI; med reviewed and changes as referenced; limits set on verbal communications with pts ASSESSMENT/PLAN: paced improvement descriptively with building first-order insight/ increase Bupropion XL to 450 mg qd; no other meds changes and continue current management plan; anticipate DC 5/4; couples' meeting later today 09/04/16 DAY UPDATE: Objective: Vital Signs Temp Pulse Resp BP Pulse Ox 36.7 C 72 13 100/58 L 93 09/03/16 06:00 09/03/16 06:00 09/03/16 06:00 09/03/16 06:00 09/03/16 06:00 ICD10 Worksheet Patient Problems: Problems Problem Status Onset Suicidal ideation Acute
[2016-09-04] MEDS: LORazepam 0.5 MG TAB PO PRN (06:20)
[2016-09-04] MEDS: buPROPion XL 150 MG TAB PO SCH ×2 (08:46→08:47)
[2016-09-04] MEDS: LEVOTHYROXINE 125 MCG TAB PO SCH (08:47)
[2016-09-04] MEDS: LORazepam 0.5 MG TAB PO SCH ×3 (08:54→17:33)
[2016-09-04] MEDS: SERTRALINE HCL 25 MG TAB PO SCH ×2 (11:31→11:35)
[2016-09-04] MEDS: traZODone 50 MG TAB PO SCH (21:29)
[2016-09-04] MEDS: ZOLPIDEM TARTRATE 5 MG TAB PO PRN (21:31)
[2016-09-05] MEDS: LORazepam 0.5 MG TAB PO PRN ×2 (03:29→22:03)
--- NOTE | 2016-09-05 06:38 | SOAPPROG ---
SOAP Progress Note Assessment/Plan: Assessment: Plan: 08/29/16 16:08 DAY UPDATE/EXAM: Nursing report pt presents with residual depressive syndromal acuity but is in control, c/w cares and meds, isolative currently/ presents as anxious, cooperative, conversant; engages well and is disclosing in answering ?' s about sx/rx history, more details of dyad with father with whom he is closely identified; meds reviewed in detail with changes as referenced. ASSESSMENT/PLAN: remains acutely depressed but engaging in rx and not at suicidal risk/ Begin Bupropion 150 mg XL, Ativan 0.5 mg tid, TZ 50 mg hs; will consider adding Neurontin as probably has primary SERENA; CP d/w Nursing 08/30/16 1615 DAY UPDATE/EXAM: Nursing reports pt slept 7 hr, less isolative and attending selective groups; c/w cares and meds, appears less depressed. on direct exam pt engages comfortably and is eager to talk; discloses more details about the family experience involving parents and brother over the past year which ultimately led to father's acute depression and suicide; pt presents this material in an analytical fashion with isolation of affect -describing the story as an observer more than a participant; he went onto to focus on the marital relationship, recurrent points of tension vs himself and which they solve by "verbal negotiation - touched on long-standing conflicts about their sexual experience together, differences in their social styles, differences in attitudes about work. He stated his interest in having 3-way consultation with before DC to clarify the way forward about his work concerns; he also wants his therapist to be briefed on his inpt course; meds re viewed briefly, denies SI ASSESSMENT/PLAN: descriptively improving with early phase resolution of depressive acuity; marital and work concerns are real but also buffering pain about father's suicide/ will reassess meds in AM and titrate Bupropion up, consider adding Neurontin 08/31/16 15:30 DAY UPDATE: Nursing reports over last 24 hr cycle pt has evidenced residual syndromal depression a/w dysphoric mood intermittent withdrawal to room; is selectively social and attending more group therapies, c/w cares and meds. ON EXAM: presents as calm and conversant, eager to talk; session focus on syndromal update, meds review, and again elaborating on pt's distressed domains - family system conflict leading to father's suicide, identification with father , work distress, and more disclosure about marital concerns. While with pt I called and s/u plan to meet with pt and on 09/03 at pt's request; pt accepts updosing of Bupropion and is pleased about expanding privileges as he is now Voluntary status. 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; c/w cares and meds and attending most groups/ on direct exam states "I've been teary" in addressing his lost career job and to a lesser degree his father's suicide; does report residual vegetative depressive sx, denies SI; med reviewed and changes as referenced; limits set on verbal communications with pts ASSESSMENT/PLAN: paced improvement descriptively with building first-order insight/ increase Bupropion XL to 450 mg qd; no other meds changes and continue current management plan; anticipate DC 09/06; couples' meeting later today 09/04/16 14:15 DAY UPDATE: Nursing reports over past 24 hour cycle pt has evidenced less syndromal depression - brighter mood, conversant, continues with social presence in milieu and attending most groups; c/w cares/meds, adequate ADL's Couples' meeting in PM 09/03: interacted supportively and with empathy toward pt in meeting; domains of distress for pt primarily focussed on work - loss of career job in May and unhappiness with present job; couples' financial situation, health insurance needs discussed in context a/w ? of pt resigning current job; current rx course reviewed and pt's descriptive improvement affirmed; strength of couplehood and their sense of "being in it together" identified and reinforced; finally DC planning discussed and value of f/u inclusion of in couples' meetings discussed. dc date of 09/06 agreed upon with safety plan in place as term of DC. 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 ON EXAM: presents as calm, cooperative, conversant; mood is brighter, broader range and tone of affect; denies SI; couples' meeting reviewed and pt stated his sense of the workability of the conclusions reached; meds reviewed and pt stated absence of side effects and continued sense of descriptivel improvement. ASSESSMENT/PLAN: improving course/ no change in meds; CP focus on preparing pt for DC d/w Nursing 09/05/16 DAY ' UPDATE: Objective: Vital Signs Temp Pulse Resp BP Pulse Ox 36.6 C 80 14 91/60 L 93 09/05/16 04:48 09/05/16 04:48 09/05/16 04:48 09/05/16 04:48 09/05/16 04:48 ICD10 Worksheet Patient Problems: Problems Problem Status Onset Suicidal ideation Acute
[2016-09-05] MEDS: LORazepam 0.5 MG TAB PO SCH ×3 (08:21→17:50)
[2016-09-05] MEDS: buPROPion XL 150 MG TAB PO SCH ×2 (08:21→08:22)
[2016-09-05] MEDS: LEVOTHYROXINE 125 MCG TAB PO SCH (08:26)
[2016-09-05] MEDS: SERTRALINE HCL 25 MG TAB PO SCH (11:27)
[2016-09-05] MEDS: ZOLPIDEM TARTRATE 5 MG TAB PO PRN (22:03)
[2016-09-05] MEDS: traZODone 50 MG TAB PO SCH (22:03)
[2016-09-06 06:10] VITALS: BP 104/62; PULSE 73; RESP 15; TEMP 97.9; O2SAT 96
--- NOTE | 2016-09-06 06:19 | SOAPPROG ---
SOAP Progress Note Assessment/Plan: Assessment: Plan: 08/29/16 16:08 DAY UPDATE/EXAM: Nursing report pt presents with residual depressive syndromal acuity but is in control, c/w cares and meds, isolative currently/ presents as anxious, cooperative, conversant; engages well and is disclosing in answering ?' s about sx/rx history, more details of dyad with father with whom he is closely identified; meds reviewed in detail with changes as referenced. ASSESSMENT/PLAN: remains acutely depressed but engaging in rx and not at suicidal risk/ Begin Bupropion 150 mg XL, Ativan 0.5 mg tid, TZ 50 mg hs; will consider adding Neurontin as probably has primary SERENA; CP d/w Nursing 08/30/16 1615 DAY UPDATE/EXAM: Nursing reports pt slept 7 hr, less isolative and attending selective groups; c/w cares and meds, appears less depressed. on direct exam pt engages comfortably and is eager to talk; discloses more details about the family experience involving parents and brother over the past year which ultimately led to father's acute depression and suicide; pt presents this material in an analytical fashion with isolation of affect -describing the story as an observer more than a participant; he went onto to focus on the marital relationship, recurrent points of tension vs himself and which they solve by "verbal negotiation - touched on long-standing conflicts about their sexual experience together, differences in their social styles, differences in attitudes about work. He stated his interest in having 3-way consultation with before DC to clarify the way forward about his work concerns; he also wants his therapist to be briefed on his inpt course; meds re viewed briefly, denies SI ASSESSMENT/PLAN: descriptively improving with early phase resolution of depressive acuity; marital and work concerns are real but also buffering pain about father's suicide/ will reassess meds in AM and titrate Bupropion up, consider adding Neurontin 08/31/16 15:30 DAY UPDATE: Nursing reports over last 24 hr cycle pt has evidenced residual syndromal depression a/w dysphoric mood intermittent withdrawal to room; is selectively social and attending more group therapies, c/w cares and meds. ON EXAM: presents as calm and conversant, eager to talk; session focus on syndromal update, meds review, and again elaborating on pt's distressed domains - family system conflict leading to father's suicide, identification with father , work distress, and more disclosure about marital concerns. While with pt I called and s/u plan to meet with pt and on 09/03 at pt's request; pt accepts updosing of Bupropion and is pleased about expanding privileges as he is now Voluntary status. 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; c/w cares and meds and attending most groups/ on direct exam states "I've been teary" in addressing his lost career job and to a lesser degree his father's suicide; does report residual vegetative depressive sx, denies SI; med reviewed and changes as referenced; limits set on verbal communications with pts ASSESSMENT/PLAN: paced improvement descriptively with building first-order insight/ increase Bupropion XL to 450 mg qd; no other meds changes and continue current management plan; anticipate DC 09/06; couples' meeting later today 09/04/16 14:15 DAY UPDATE: Nursing reports over past 24 hour cycle pt has evidenced less syndromal depression - brighter mood, conversant, continues with social presence in milieu and attending most groups; c/w cares/meds, adequate ADL's Couples' meeting in PM 09/03: interacted supportively and with empathy toward pt in meeting; domains of distress for pt primarily focussed on work - loss of career job in May and unhappiness with present job; couples' financial situation, health insurance needs discussed in context a/w ? of pt resigning current job; current rx course reviewed and pt's descriptive improvement affirmed; strength of couplehood and their sense of "being in it together" identified and reinforced; finally DC planning discussed and value of f/u inclusion of in couples' meetings discussed. dc date of 09/06 agreed upon with safety plan in place as term of DC. 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 ON EXAM: presents as calm, cooperative, conversant; mood is brighter, broader range and tone of affect; denies SI; couples' meeting reviewed and pt stated his sense of the workability of the conclusions reached; meds reviewed and pt stated absence of side effects and continued sense of descriptivel improvement. ASSESSMENT/PLAN: improving course/ no change in meds; CP focus on preparing pt for DC d/w Nursing 09/05/16 14:15 DAY UPDATE: Nursing reports pt sustaining improving course- c/w cares and meds, slept 6+ hours, continuing social presence in milieu and participating in group ; decreased evidence of syndromal depression and anticipating DC 09/06. ON EXAM: pt presents as calm, cooperative, conversant; mood minimally dysphoric , focussed on Dc planning and obsessively reviews options about his employment; thought process remains organized in what he will discuss with his managers at work about interest in job change within the company or, if not open to him, strong consideration of resigning; also able to focus on family of origin and grief about father's suicide; session associated to goals post DC, how to use resumption of his psychotherapy, role of couples' meetings integrated with his individual session; finally meds reviewed; pt agrees with my followup discussion with his PCP Dr. Guillen prior to his Dc tomorrow at 1500. Pt denies any residual SI ASSESSMENT/PLAN: continues resolution of residual syndromal depression; gaining first order insight as prepares for DC tomorrow/ no change in meds; CP focus a/ w preparation for DC d/w Nursing in rounds 09/06/16 Brief Discharge Note DAY UPDATE: Objective: Vital Signs Temp Pulse Resp BP Pulse Ox 36.6 C 80 14 91/60 L 93 09/05/16 04:48 09/05/16 04:48 09/05/16 04:48 09/05/16 04:48 09/05/16 04:48 ICD10 Worksheet Patient Problems: Problems Problem Status Onset Suicidal ideation Acute
[2016-09-06] MEDS: SERTRALINE HCL 25 MG TAB PO SCH (08:09)
[2016-09-06] MEDS: buPROPion XL 150 MG TAB PO SCH ×2 (08:09)
[2016-09-06] MEDS: LEVOTHYROXINE 125 MCG TAB PO SCH (08:09)
[2016-09-06] MEDS: LORazepam 0.5 MG TAB PO SCH ×2 (08:09→12:40)
--- NOTE | 2016-09-06 14:29 | SOAPPROG ---
SOAP Progress Note Assessment/Plan: Assessment: Plan: 08/29/16 16:08 DAY UPDATE/EXAM: Nursing report pt presents with residual depressive syndromal acuity but is in control, c/w cares and meds, isolative currently/ presents as anxious, cooperative, conversant; engages well and is disclosing in answering ?' s about sx/rx history, more details of dyad with father with whom he is closely identified; meds reviewed in detail with changes as referenced. ASSESSMENT/PLAN: remains acutely depressed but engaging in rx and not at suicidal risk/ Begin Bupropion 150 mg XL, Ativan 0.5 mg tid, TZ 50 mg hs; will consider adding Neurontin as probably has primary SERENA; CP d/w Nursing 08/30/16 1615 DAY UPDATE/EXAM: Nursing reports pt slept 7 hr, less isolative and attending selective groups; c/w cares and meds, appears less depressed. on direct exam pt engages comfortably and is eager to talk; discloses more details about the family experience involving parents and brother over the past year which ultimately led to father's acute depression and suicide; pt presents this material in an analytical fashion with isolation of affect -describing the story as an observer more than a participant; he went onto to focus on the marital relationship, recurrent points of tension vs himself and which they solve by "verbal negotiation - touched on long-standing conflicts about their sexual experience together, differences in their social styles, differences in attitudes about work. He stated his interest in having 3-way consultation with before DC to clarify the way forward about his work concerns; he also wants his therapist to be briefed on his inpt course; meds re viewed briefly, denies SI ASSESSMENT/PLAN: descriptively improving with early phase resolution of depressive acuity; marital and work concerns are real but also buffering pain about father's suicide/ will reassess meds in AM and titrate Bupropion up, consider adding Neurontin 08/31/16 15:30 DAY UPDATE: Nursing reports over last 24 hr cycle pt has evidenced residual syndromal depression a/w dysphoric mood intermittent withdrawal to room; is selectively social and attending more group therapies, c/w cares and meds. ON EXAM: presents as calm and conversant, eager to talk; session focus on syndromal update, meds review, and again elaborating on pt's distressed domains - family system conflict leading to father's suicide, identification with father , work distress, and more disclosure about marital concerns. While with pt I called and s/u plan to meet with pt and on 09/03 at pt's request; pt accepts updosing of Bupropion and is pleased about expanding privileges as he is now Voluntary status. 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; c/w cares and meds and attending most groups/ on direct exam states "I've been teary" in addressing his lost career job and to a lesser degree his father's suicide; does report residual vegetative depressive sx, denies SI; med reviewed and changes as referenced; limits set on verbal communications with pts ASSESSMENT/PLAN: paced improvement descriptively with building first-order insight/ increase Bupropion XL to 450 mg qd; no other meds changes and continue current management plan; anticipate DC 09/06; couples' meeting later today 09/04/16 14:15 DAY UPDATE: Nursing reports over past 24 hour cycle pt has evidenced less syndromal depression - brighter mood, conversant, continues with social presence in milieu and attending most groups; c/w cares/meds, adequate ADL's Couples' meeting in PM 09/03: interacted supportively and with empathy toward pt in meeting; domains of distress for pt primarily focussed on work - loss of career job in May and unhappiness with present job; couples' financial situation, health insurance needs discussed in context a/w ? of pt resigning current job; current rx course reviewed and pt's descriptive improvement affirmed; strength of couplehood and their sense of "being in it together" identified and reinforced; finally DC planning discussed and value of f/u inclusion of in couples' meetings discussed. dc date of 09/06 agreed upon with safety plan in place as term of DC. 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 ON EXAM: presents as calm, cooperative, conversant; mood is brighter, broader range and tone of affect; denies SI; couples' meeting reviewed and pt stated his sense of the workability of the conclusions reached; meds reviewed and pt stated absence of side effects and continued sense of descriptivel improvement. ASSESSMENT/PLAN: improving course/ no change in meds; CP focus on preparing pt for DC d/w Nursing 09/05/16 14:15 DAY ' UPDATE: Nursing reports pt sustaining improving course- c/w cares and meds, slept 6+ hours, continuing social presence in milieu and participating in group ; decreased evidence of syndromal depression and anticipating DC 09/06. ON EXAM: pt presents as calm, cooperative, conversant; mood minimally dysphoric , focussed on Dc planning and obsessively reviews options about his employment; thought process remains organized in what he will discuss with his managers at work about interest in job change within the company or, if not open to him, strong consideration of resigning; also able to focus on family of origin and grief about father's suicide; session associated to goals post DC, how to use resumption of his psychotherapy, role of couples' meetings integrated with his individual session; finally meds reviewed; pt agrees with my followup discussion with his PCP Dr. Guillen prior to his Dc tomorrow at 1500. Pt denies any residual SI ASSESSMENT/PLAN: continues resolution of residual syndromal depression; gaining first order insight as prepares for DC tomorrow/ no change in meds; CP focus a/ w preparation for DC d/w Nursing in rounds 09/06/16 Brief Discharge Note DAY ' UPDATE: Nursing reports improving course has continued over the last 24 hours and pt preparing stably for DC ON EXAM: presents as calm, cooperative, conversant; able to directly focus on of father and effectively disclosed the overview of his relationship with his dad and his perspective on father's personhood - in effect accomplishing progress in his grief work and providing material which facilitated continuity to be defined in his followup treatment; meds reviewed, affect remained appropriate to session focus throut; denies and SI and has good awareness of safety plan he's taking to his community followup; stable for DC later today ASSESSMENT/PLAN: ready for dc today DC with pickup and they going together to initial appointment with psychotherapist @ 1600 psychotherapy and meds management privately as scheduled call to PCP ending to review medications pt to 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
--- NOTE | 2016-09-07 07:38 | SOAPPROG ---
SOAP Progress Note Assessment/Plan: Assessment: Plan: 08/29/16 16:08 DAY UPDATE/EXAM: Nursing report pt presents with residual depressive syndromal acuity but is in control, c/w cares and meds, isolative currently/ presents as anxious, cooperative, conversant; engages well and is disclosing in answering ?' s about sx/rx history, more details of dyad with father with whom he is closely identified; meds reviewed in detail with changes as referenced. ASSESSMENT/PLAN: remains acutely depressed but engaging in rx and not at suicidal risk/ Begin Bupropion 150 mg XL, Ativan 0.5 mg tid, TZ 50 mg hs; will consider adding Neurontin as probably has primary SERENA; CP d/w Nursing 08/30/16 1615 DAY UPDATE/EXAM: Nursing reports pt slept 7 hr, less isolative and attending selective groups; c/w cares and meds, appears less depressed. on direct exam pt engages comfortably and is eager to talk; discloses more details about the family experience involving parents and brother over the past year which ultimately led to father's acute depression and suicide; pt presents this material in an analytical fashion with isolation of affect -describing the story as an observer more than a participant; he went onto to focus on the marital relationship, recurrent points of tension vs himself and which they solve by "verbal negotiation - touched on long-standing conflicts about their sexual experience together, differences in their social styles, differences in attitudes about work. He stated his interest in having 3-way consultation with before DC to clarify the way forward about his work concerns; he also wants his therapist to be briefed on his inpt course; meds re viewed briefly, denies SI ASSESSMENT/PLAN: descriptively improving with early phase resolution of depressive acuity; marital and work concerns are real but also buffering pain about father's suicide/ will reassess meds in AM and titrate Bupropion up, consider adding Neurontin 08/31/16 15:30 DAY UPDATE: Nursing reports over last 24 hr cycle pt has evidenced residual syndromal depression a/w dysphoric mood intermittent withdrawal to room; is selectively social and attending more group therapies, c/w cares and meds. ON EXAM: presents as calm and conversant, eager to talk; session focus on syndromal update, meds review, and again elaborating on pt's distressed domains - family system conflict leading to father's suicide, identification with father , work distress, and more disclosure about marital concerns. While with pt I called and s/u plan to meet with pt and on 09/03 at pt's request; pt accepts updosing of Bupropion and is pleased about expanding privileges as he is now Voluntary status. 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; c/w cares and meds and attending most groups/ on direct exam states "I've been teary" in addressing his lost career job and to a lesser degree his father's suicide; does report residual vegetative depressive sx, denies SI; med reviewed and changes as referenced; limits set on verbal communications with pts ASSESSMENT/PLAN: paced improvement descriptively with building first-order insight/ increase Bupropion XL to 450 mg qd; no other meds changes and continue current management plan; anticipate DC 09/06; couples' meeting later today 09/04/16 14:15 DAY UPDATE: Nursing reports over past 24 hour cycle pt has evidenced less syndromal depression - brighter mood, conversant, continues with social presence in milieu and attending most groups; c/w cares/meds, adequate ADL's Couples' meeting in PM 09/03: interacted supportively and with empathy toward pt in meeting; domains of distress for pt primarily focussed on work - loss of career job in May and unhappiness with present job; couples' financial situation, health insurance needs discussed in context a/w ? of pt resigning current job; current rx course reviewed and pt's descriptive improvement affirmed; strength of couplehood and their sense of "being in it together" identified and reinforced; finally DC planning discussed and value of f/u inclusion of in couples' meetings discussed. dc date of 09/06 agreed upon with safety plan in place as term of DC. 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 ON EXAM: presents as calm, cooperative, conversant; mood is brighter, broader range and tone of affect; denies SI; couples' meeting reviewed and pt stated his sense of the workability of the conclusions reached; meds reviewed and pt stated absence of side effects and continued sense of descriptivel improvement. ASSESSMENT/PLAN: improving course/ no change in meds; CP focus on preparing pt for DC d/w Nursing 09/05/16 14:15 DAY ' UPDATE: Nursing reports pt sustaining improving course- c/w cares and meds, slept 6+ hours, continuing social presence in milieu and participating in group ; decreased evidence of syndromal depression and anticipating DC 09/06. ON EXAM: pt presents as calm, cooperative, conversant; mood minimally dysphoric , focussed on Dc planning and obsessively reviews options about his employment; thought process remains organized in what he will discuss with his managers at work about interest in job change within the company or, if not open to him, strong consideration of resigning; also able to focus on family of origin and grief about father's suicide; session associated to goals post DC, how to use resumption of his psychotherapy, role of couples' meetings integrated with his individual session; finally meds reviewed; pt agrees with my followup discussion with his PCP Dr. Guillen prior to his Dc tomorrow at 1500. Pt denies any residual SI ASSESSMENT/PLAN: continues resolution of residual syndromal depression; gaining first order insight as prepares for DC tomorrow/ no change in meds; CP focus a/ w preparation for DC d/w Nursing in rounds 09/06/16 Brief Discharge Note DAY ' UPDATE: Nursing reports improving course has continued over the last 24 hours and pt preparing stably for DC ON EXAM: presents as calm, cooperative, conversant; able to directly focus on of father and effectively disclosed the overview of his relationship with his dad and his perspective on father's personhood - in effect accomplishing progress in his grief work and providing material which facilitated continuity to be defined in his followup treatment; meds reviewed, affect remained appropriate to session focus throut; denies and SI and has good awareness of safety plan he's taking to his community followup; stable for DC later today ASSESSMENT/PLAN: ready for dc today DC with pickup and they going together to initial appointment with psychotherapist @ 1600 psychotherapy and meds management privately as scheduled call to PCP ending to review medications pt to 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 within next 2 weeks before returning to work see Discharge Summary Medications/ pt given 30 day supply prescribed at DC other than resuming home supplies of Ambien and Synthroid Generic Name Dose Route Start Last Admin Trade Name Fretaiwo PRN Reason Stop Dose Admin Bupropion HCl 300 mg 09/04/16 09:00 09/06/16 08:09 Wellbutrin Xl PO 03/03/17 08:59 300 mg DAILY JUSTYNA Levothyroxine Sodium 125 mcg 08/28/16 10:00 09/06/16 08:09 Synthroid PO 02/24/17 09:59 125 mcg DAILY@1000 JUSTYNA Bupropion HCl 150 mg 09/03/16 13:00 09/06/16 08:09 Wellbutrin Xl PO 03/02/17 12:59 150 mg DAILY JUSTYNA Lorazepam 0.5 mg 08/29/16 18:00 09/06/16 12:40 Ativan PO 02/25/17 17:59 0.5 mg TID@0800,1300,1800 JUSTYNA Trazodone HCl 50 mg 08/29/16 21:00 09/05/16 22:03 Trazodone PO 02/25/17 20:59 50 mg HS JUSTYNA Ambien 5 mg po hs Objective: Vital Signs Temp Pulse Resp BP Pulse Ox 36.6 C 73 15 104/62 96 09/06/16 06:00 09/06/16 06:00 09/06/16 06:00 09/06/16 06:00 09/06/16 06:00 ICD10 Worksheet Patient Problems: Problems Problem Status Onset Suicidal ideation Acute
--- NOTE | 2016-09-07 09:18 | BDS ---
[f rep st] BEHAVIORAL HEALTH DISCHARGE SUMMARY PATIENT IDENTIFICATION: The patient presented as a 51-year-old, , white male who lives [place] with his , works full-time as a computer engineering technologist; he is followed as a psychiatric outpatient in psychotherapy and his psychoactive medications including Zoloft, propranolol, and BuSpar managed by his PCP-Dr. Guillen located in [place]. Patient was admitted for complaints of a depressive crisis and suicidal ideations with plan to buy a gun and shoot himself to ; he was self-referred to the [facility] Emergency Room on the advice of his psychotherapist on the day of admission. DISCHARGE DIAGNOSES: AXIS I: Major Depressive Disorder-chronic in duration, recurrent in pattern, pre-admission depressive crisis with suicidal ideation in early phase improvement. AXIS II: Prominent obsessive-compulsive traits. AXIS III: 1. No active medical problems. 2. S/B hypothyroidism-stable on Synthroid replacement. 3. Moderate obesity. 4. Remote history of right shoulder injury. 5. Remote history of hypogonadism-not currently treated. AXIS IV: Primary stressors associated with family of origin system instability emanating from primary conflict between patient's mother and his brother's family-intensifying over the past year; father's suicide on 05/05/2016 by self- inflicted gunshot wound; job lay off end of May from 29 years successful career position secondary to contraction of workforce. Additional stressors; job dissatisfaction and new employment which began 07/22/2016. AXIS V: Discharge GAF 50. DISPOSITION: 1. Patient discharged to return to family home to live with his . 2. Psychiatric followup to resume work with his psychotherapist-initial appointment 09/06 at 1600; follow up psychiatric medication management per PCP. 3. Patient to take 2 week period prior to returning to work for time to engage outpatient treatment and gain improved functionality. 4. Medical follow up with PCP for well patient care. 5. Medications at discharge as referenced below. REASON FOR ADMISSION: The reader is referred to the detailed Admission Psychiatric Assessment per Dr. Kaye dated 08/28. In summary, the patient presented with a chronic history of recurrent episodes of depression and questioned chronic history for generalized anxiety symptoms. He has no previous history of suicide attempts. The current episode emerged in the context of serious family of origin dysfunction. The primary conflict beginning sometime in the past year involved interactive conflicts between his mother and his younger brother and [id number] with patient's mother criticizing their parental style with their young children. This intensified over the year and patient along with his father attempted to intervene as supportive peacemakers independent of one another. The family system conflict broadened to include the patient as well as parents in their marital relationship. In this context, the patient's father developed a syndrome of depression which intensified over an unclear period of time leading to his depressive crisis and suicide attempt by shooting himself in the head on 2015. Patient described his father as self-contained and largely noncommunicative to the patient himself or others about his depressive pain. The suicide incident impacted as unexpected and shocking to all family members including the patient. Patient heard several days later on 05/07/2016, that his company with whom he had been employed 29 years was implementing an active layoff which led to the patient's loss of his career job with his company at the end of May. Patient's own syndromal depression emerged some time after that. He attended to his father's and burial, continued to operate in a supportive fashion toward his mother and brother in parallel with looking for a new job. He initiated a new employment on 07/22/2016, but quickly felt overqualified and dissatisfied. It was at some point after establishing this new employment that the patient's vegetative symptoms of depression emerged and worsened to a level of crisis proportions, including in the last days prior to this admission a plan to buy a gun and shoot himself to . Patient had continued to see his psychotherapist with whom he had worked with 5 years on a somewhat sporadic basis. He also continued to take long-term maintenance medications from his PCP including Zoloft 150 mg q.a.m., propranolol 10 mg daily p.r.n., and BuSpar 5-15 mg p.r.n. patient also intermittently, over an extended period, had used Ambien 10 mg p.r.n. at . With continuing progression of his symptom intensity, and the patient's experience of active suicidal ideation with a plan, prompted him to reach out on the day of admission and to call his psychotherapist, expressing a fear he may act on his suicidal thinking. Patient was directed to come to the [facility] emergency room. Which he did cooperatively. He was medically cleared, seen in psychiatric consultation by [facility]. He was deemed to be at high risk of self-harm and in need of acute inpatient hospitalization, proceeded to be admitted to [address] [place] [address] on an M1 hold. MEDICAL FINDINGS: In the emergency room patient's physical exam was stable with no focal or systemic problem; labs screens include a CBC, BMP, TSH, toxic screen, and blood alcohol level-all of which were unremarkable and/or within normal limits. Physical exam post admission to [address] [place] [address] continued to evidence stability; patient remained medically well throughout his course. Because of his history of hypogonadism, lab screens were added including a total testosterone and free testosterone. Total testosterone was measured at 271 and free testosterone pending at discharge. HOSPITAL COURSE: Patient engaged from the outset productively in his psychiatric treatment plan. He utilized the social milieu and group program to therapeutic benefit, engaging daily and participating actively in the group program. He also utilized individual sessions with myself to offer a reliable history as well as use the psychotherapeutic element in the sessions for abreactive benefit. He presented initially as extremely isolated emotionally but this defense diminished steadily with patient able to express authentic grief with appropriate expression of affect as the sessions continued. Patient also addressed chronic conflictual dynamics in the marital partnership. Thirdly , he was somewhat preoccupied with the dissatisfaction in his current job and utilized individual sessions with myself and a productive 3-way meeting which included he and his to sort out a strategy to approach work post discharge. Medications were stabilized and included bupropion XL 450 mg q.a.m. , Ambien 5 mg p.r.n., Ativan 0.5 mg three times daily, and trazodone 50 mg HS. With sufficient stabilization of mental status and consolidating first order insight, patient was deemed sufficiently stable, free of suicidal ideation, and proceeded to discharge with followup plan as referenced. CONDITION ON DISCHARGE: Improved. MENTAL STATUS EXAMINATION: In final session the patient presented as calm, cooperative, conversant. Patient's mood state was neutral, expression of affect significantly less constricted and deeper in tone. He used part of the final session for further grief work associated with father's . We also reviewed medications in detail, goals of followup psychotherapy including inclusion of his in intermittent 3 way meetings. Discharge plan which had approved a 2-week period before patient returned to work was discussed along with patient's plan to speak with his managers at work directly prior to returning to work to resolve his job situation more definitively. Patient's affect remained appropriate throughout the final session back to [facility]. RISKS: Patient was deemed low risk for self-harm, harm to others, or inability to manage his community life safely. DISCHARGE MEDICATIONS: Patient was given a 30 day supply at time of discharge, other than resuming home supplies of Ambien and Synthroid. Wellbutrin XL 4500 mg p.o. daily in the morning, Synthroid 125 mg p.o. daily, Ativan 0.5 mg p.o. three times daily, trazodone 50 mg p.o. at HS and Ambien 5 mg p.o. HS p.r.n. DISCHARGE LEGAL STATUS: Voluntary. /[id number]/MODL MTDD
== END 2016-09-06 15:40 | disposition home or self-care (01) | DRG 885 ==
LOC: BBEH 22:05
PROVIDERS: ADMIT Psychiatry & Neurology Behavioral Neurology & Neuropsychiatry; ATTEND Psychiatry & Neurology Psychiatry
DX: F33.9 Major depressive disorder, recurrent, unspecified (principal); E03.9 Hypothyroidism, unspecified; E66.9 Obesity, unspecified
CPT/HCPCS: 80305; G0480